=== PATIENT | female | born 1975 | race Caucasian/White ===

== ENCOUNTER 2023-05-17 09:57 | Outpatient (AMB) | payer OTHER, SELFPAY ==
[2023-05-17 10:07] VITALS: BP 110/78; PULSE 93; O2SAT 96; BMI 28.9
--- NOTE | 2023-05-17 10:07 | A.OFFPC_ITS ---
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 Intake Note: Pt is here to est care Is last menstrual period known: Yes Last menstrual period: 04/16/23 Allergies shellfish Allergy (Intermediate, Uncoded 05/17/23 10:27) Angioedema Medication List - Last Reconciled 05/17/23 by THA Pérez albuterol sulfate 90 mcg/actuation 2 inhalations inhalation Q6H PRN albuterol sulfate 90 mcg/actuation (Proventil HFA) 2 puffs inhalation Q6H PRN ashwagandha root extract mg PO L norgest/e.estradiol-e.estrad 0.15 mg-30 mcg (84)/10 mcg (7) (Simpesse) PO loratadine 10 mg PO DAILY montelukast 10 mg PO DAILY [seamoss po; ] vitamin B complex (B Complex-Vitamin B12 tablet) 1 tab PO DAILY Tobacco use date assessed: 05/17/23 Dental Screening Dental Screen Date: 05/17/23 Did you have a dental visit in the last 12 months?: Yes Did you have a dental problem in the last 6 months where you did not have access to dental care?: No Was dental information given to patient?: Patient has dentist HPI HPI Comments History of Present Illness Details Patient is a 47-year-old female here to establish care. She is u p-to-date with her mammogram, states that her next mammogram is due in 1 year. She is due for a well-woman visit. She is due for colonoscopy, will refer to Gastroenterology. She states that she has already establish care with the communications controller in [place] and needs a referral from her primary care provider. She is sending us our medical records from her previous provider. Her chief complaint today is hair loss. Patient states that over the past year she has noticed that her hair is starting to fall out and thin. She is taking multivitamin but does not seem to be helping. Denies itchy scalp, scaling, recent stressful life event, hot flashes, dizziness, or numbness. [facility] Medical History (Updated 01/10/24 @ 15:59 by THA Pérez) Post-COVID syndrome Surgical History (Updated 05/17/23 @ 10:37 by THA Pérez) H/O abdominoplasty H/O tubal ligation Family History Paternal Aunt Breast cancer Father Bladder cancer Paternal Uncle Gastric cancer Paternal Uncle Colon cancer Social History Housing: House Patient Tobacco Use Status: Never used Tobacco e-Cigarette/Vaping Use: Never Used Second Hand Smoke Exposure: No service: No Current occupational status: employed Current occupation: [employer] Current occupational exposures/hazards: No Cognitive needs: No Hearing needs: No Vision needs: No Female Reproductive History Menstrual Date of last menstrual period: 04/16/23 Number of Living Children: 2 Questionnaire PHQ-9 Over the last 2 weeks, how often have you been bothered by any of the following problems? 1. Little interest or pleasure in doing things: not at all 2. Feeling down, depressed, or hopeless: not at all 3. Trouble falling or staying asleep, or sleeping too much: not at all 4. Feeling tired or having little energy: several days 5. Poor appetite or overeating: not at all 6. Feeling bad about yourself - or that you are a failure or have let yourself or your family down: not at all 7. Trouble concentrating on things, such as reading the newspaper or watching television: not at all 8. Moving or speaking so slowly that other people could have noticed. Or the opposite - being so fidgety or restless that you have been moving around a lot more than usual: not at all 9. Thoughts that you would be better off or of hurting yourself in some way: not at all Total score: 1 Depression Screening Interpretation: Negative Depression Screening Done: Yes 66581 - PHQ-9 Billing: Yes Source: Developed by Drs. Epi Rojo, Savita Gonzalez, Martin Pratt and colleagues, with an educational josue from [employer]. Thrive Questionnaire Date Thrive assessed: 05/17/23 I am a: Patient What is your living situation today?: I have a steady place to live Within the past 12 months, did the food you bought not last and you didn't have the money to get more?: Never true Within the past 12 months, did you worry whether your food would run out before you got money to buy more?: Never true Do you have trouble paying for medicines?: No Do you have trouble getting transportation to medical appointments?: No Do you have trouble paying your heating and electricity bill?: No Do you have trouble taking care of your child, family member or friend?: No Do you have trouble with day-to-day activities such as bathing, preparing meals, shopping, managing finances, etc.?: No Are you currently unemployed and looking for a job?: No Are you interested in more education?: No AUDIT C Alcohol Use Questionnaire (AUDIT-C) 1. How often do you have a drink containing alcohol?: Monthly or less 2. How many drinks containing alcohol do you have on a typical day when you are drinking?: 1 or 2 3. How often do you have six or more drinks on one occasion?: Never Total Score: 1 UZMA-7 AMB Questionnaire ZUMA-7 Date UZMA - 7 assessed: 05/17/23 Feeling nervous, anxious, or on edge: 0 = Not at all Not being able to stop or control worryin = Not at all Worrying too much about different things: 0 = Not at all Trouble relaxin = Not at all Being so restless that it is hard to sit still: 0 = Not at all Becoming easily annoyed or irritable: 1 = Several days Feeling afraid as if something awful might happen: 0 = Not at all Total UZMA-7 score (0-4 normal; 5-9 mild; 10-14 moderate; 15-21 severe): 1 Source: Developed by Drs. Epi Rojo, Savita Gonzalez, Martin Pratt and colleagues, with an educational josue from [employer]. UZMA-7 Assessment Billing UZMA-7 Assessment Tool: UZMA-7 Assessment 33445 Review of Systems Const Details: Constitutional : No Weight loss, No Fever, No Chills, No Fatigue, No Malaise ENT/Mouth : No sore throat, No Rhinorrhea Eyes: No Eye Pain, No Swelling, No Redness Cardiovascular : No Chest Pain, No SOB, No Dyspnea on Exertion, No Orthopnea, No Edema, No Palpitations Respiratory : No Cough, No Sputum, No Wheezing Gastrointestinal : No Nausea, No Vomiting, No Diarrhea, No Constipation, No abdominal Pain, No Hematochezia, No Melena Genitourinary : No Dysuria, No Urinary Frequency, No Hematuria, Musculoskeletal : No joint pain, No Myalgias, No Joint Swelling Skin : No Skin Lesions, No rash Neuro : No Weakness, No Numbness, No Dizziness, No Headache Psych : No Anxiety/Panic, No Depression Heme/Lymph: No Bruising, No Bleeding,No Lymphadenopathy Endocrine : No Polyuria, No Polydipsia All other systems reviewed and are negative Physical exam (Primary Care) Vital Signs: Last Vital Signs Pulse 93 05/17/23 10:07 BP 110/78 05/17/23 10:07 Pulse Ox 96 05/17/23 10:07 Oxygen Delivery Method Room Air 05/17/23 10:07 Care Plan Goal for BP management: Patient's blood pressure is on target. BMI result Body Mass Index 28.9 Tobacco/Smoking Status: Tobacco use Status Tobacco use date assessed 05/17/23 05/17/23 10:20 Patient Tobacco Use Status Never used Tobacco 05/17/23 10:20 e-Cigarette/Vaping Use Never Used 05/17/23 10:20 PHQ-9: PHQ-9 Score PHQ-9: Total score 1 05/17/23 10:41 Depression Screening Interpretation: Negative Thrive Assessment: Date of Thrive Assessment Date Thrive assessed 05/17/23 05/17/23 10:23 Const Other: Appearance: Alert.? Oriented X3.? No acute distress.? Head: Normocephalic, atraumatic. Slight hair loss. Eyes: Pupils equal, round and reactive to light.? Neck: Normal inspection.? Neck supple.? CVS: Normal heart rate and rhythm.? Pulses normal.? Respiratory: No respiratory distress.? Breath sounds normal.? Abdomen: Soft and nontender.? Skin: Skin warm and dry.? Normal skin color.? Normal skin turgor.? Neuro: Oriented X 3.? No motor deficit.? No sensory deficit. CN 2-12 intact Results Reviewed Results Reviewed: Will call patient with lab results. Assessment and Plan Assessment & Plan (1) Allergy-induced asthma: Comment: Patient will get referral to pulmonology. Patient has been educated on signs of worsening symptoms when to return to the office or when to present to the emergency room. Code(s): J45.909 - Unspecified asthma, uncomplicated Qualifiers: Asthma severity: unspecified severity Asthma complication type: unspecified Asthma persistence: unspecified Qualified Code(s): J45.909 - Unspecified asthma, uncomplicated (2) Hair loss: Comment: Will draw labs, intervene based on the results. Patient is agreeable to this plan. Code(s): L65.9 - Nonscarring hair loss, unspecified Plan: Take your medications as prescribed. If you were prescribed antibiotics today, it is important that you take your medication to their entirety, do not skip any doses, do not finish them early. Follow-up with your primary care provider this week. Return to the emergency department with new or worsening symptoms. Such as fevers, chills, chest pain, shortness of breath, nausea, vomiting, dizziness, headache, vision changes, lethargy In case of emergency call 911 Plan Follow-up for annual physical in 3-4 months. Orders: Orders Complete Blood Count Auto Diff Today Z13.0 - Encounter for screening for diseases of the blood and blood-forming organs and certain disorders involving the immune mechanism Vitamin D 25-OH (D2 and D3) Today Z13.21 - Encounter for screening for nutritional disorder Vitamin B12 Today Z13.21 - Encounter for screening for nutritional disorder Comprehensive Met. 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
== END 2023-05-17 10:50 | disposition home or self-care (01) ==
PROVIDERS: Visit Provider Nurse Practitioner Primary Care
DX: J45.909 Unspecified asthma, uncomplicated (principal); L65.9 Nonscarring hair loss, unspecified
CPT/HCPCS: 99204

== ENCOUNTER 2023-05-17 10:51 | Outpatient (REF) | payer OTHER, SELFPAY ==
[2023-05-17 13:31] LABS: MANUAL DIFF FLAG NO
[2023-05-17 13:35] LABS: Basophils Percent Auto 0.7 % (0-2); Eosinophils Absolute Auto 0.1 X10*3/uL (0.0-0.4); Eosinophils Percent Auto 2.9 % (0-4); Hematocrit 39.3 % (37.0-47.0); Imm Gran Abs Auto 0.01 X10*3/uL (0.00-0.03); Imm Gran Pct Auto 0.2 % (0.0-0.4); Lymphocytes Absolute Auto 1.6 X10*3/uL (1.2-4.9); Lymphocytes Percent Auto 35.7 % (20-40); Mean Corpuscular HGB Conc 33.1 g/dl (31.0-35.0); Mean Corpuscular Hemoglobin 30.7 pg (27.0-33.0); Mean Corpuscular Volume 92.7 fL (80.0-98.0); Mean Platelet Volume 10.3 fL (9.4-12.3); Monocytes Absolute Auto 0.5 X10*3/uL (0.1-1.2); Monocytes Percent Auto 9.9 % (2-11); Neutrophils Absolute Auto 2.3 x10*3/uL (2.0-8.3); Neutrophils Percent Auto 50.6 % (45-73); Platelet Count 248 X10*3/uL (160-400); Red Blood Count 4.24 X10*6/uL (4.20-5.50); Red Cell Distribution Width 12.5 % (11.0-16.0); White Blood Count 4.6 X10*3/uL (4.8-10.8)
[2023-05-17 13:57] LABS: Appearance Urine Clear; Color Urine Dark Yellow; Glucose Urine UA Negative (Negative); Leukocyte Esterase Urine Small (1+) (Negative); Nitrite Urine Negative (Negative); PH 5.5 (5.0-9.0); Specific Gravity - Urine 1.025 (1.005-1.025); UMIC TRIGGER UACC YES; Urine Blood Negative (Negative); Urine Ketones Negative (Negative); Urine Protein Negative (Neg-Trace)
[2023-05-17 14:04] LABS: Alanine Aminotransferase 43 U/L (0-31); Albumin Level 4.3 g/dL (3.5-5.0); Alkaline Phosphatase 63 U/L (39-117); Anion Gap 13 (12-20); Aspartate Amino Transferase 29 U/L (5-31); Bilirubin Total 0.3 mg/dL (0.0-1.0); Blood Urea Nitrogen 10 mg/dL (9-16); Calcium 9.1 mg/dL (8.4-10.2); Carbon Dioxide 22 mmol/L (22-29); Chloride 109 mmol/L (96-108); Cholesterol 184 mg/dL (<200); Estimated Glomerular Filt Rate > 60; Glucose Random 101 mg/dL (60-115); HDL Cholesterol 43 mg/dL (>40); Iron 71 mcg/dL (30-160); LDL Cholesterol Calculated 118 mg/dL (<100); Percent Iron Saturation 22 % (15-50); Potassium 4.2 mmol/L (3.3-5.1); Sodium 140 mmol/L (135-145); Total Iron Binding Capacity 330 mcg/dL (228-428); Total Protein 7.9 g/dL (6.5-8.0); Triglycerides 117 mg/dL (<150); Unsaturated Iron Binding 259 ug/dL
[2023-05-17 14:13] LABS: Bacteria Urine 1+ (None Seen); Hyaline Casts Urine 0-2 /LPF (0-2); RBC Urine 0-2 /HPF (0-2); UACC Culture Trigger YES
[2023-05-17 14:21] LABS: TSH reflex Free T4 1.83 uIU/mL (0.32-4.0)
[2023-05-17 14:25] LABS: Vitamin B12 418 pg/mL (200-900)
[2023-05-21 16:28] LABS: Vitamin D 25-OH, D2 <4 ng/mL; Vitamin D 25-OH, D3 22 ng/mL; Vitamin D 25-OH, Total 22 ng/mL (30-100)
[2023-05-22 13:43] LABS: Vitamin B6 58.3 ng/mL (2.1-21.7)
== END 2023-05-17 10:52 | disposition home or self-care (01) ==
LOC: HO.HMGCLDS 10:51
PROVIDERS: PCP Nurse Practitioner Primary Care; Visit Provider Nurse Practitioner Primary Care
DX: Z13.21 Encounter for screening for nutritional disorder (principal); Z13.0 Encounter for screening for diseases of the blood and blood-forming organs and certain disorders involving the immune mechanism; E78.5 Hyperlipidemia, unspecified; L65.9 Nonscarring hair loss, unspecified; Z91.89 Other specified personal risk factors, not elsewhere classified; E03.9 Hypothyroidism, unspecified; R82.90 Unspecified abnormal findings in urine
CPT/HCPCS: 36415; 80053; 80061; 81001; 82306; 82607; 83540; 84207; 84443; 85025; 87086

== ENCOUNTER 2023-06-22 11:31 | Outpatient (AMB) | payer OTHER, SELFPAY ==
[2023-06-22 11:33] VITALS: BP 116/72; BMI 28.5
--- NOTE | 2023-06-22 11:33 | A.OFFVIS_ITS ---
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 The patient is complaining of heavy menstrual cycles associated with passage of blood clots Last Pap/HPV was more than 5 years ago Last Mammogram was in 07/28 according to patient at [facility] and was normal No previous screening colonoscopy [facility] Medical History Post-COVID syndrome Surgical History H/O abdominoplasty H/O tubal ligation Family History Paternal Aunt Breast cancer Father Bladder cancer Paternal Uncle Gastric cancer Paternal Uncle Colon cancer Social History Housing: House Patient Tobacco Use Status: Never used Tobacco e-Cigarette/Vaping Use: Never Used Second Hand Smoke Exposure: No service: No Current occupational status: employed Current occupation: [employer] Current occupational exposures/hazards: No Cognitive needs: No Hearing needs: No Vision needs: No Female Reproductive History Menstrual Date of last menstrual period: 06/06/23 Total pregnancies: 4 Full term: 2 Number of Living Children: 2 Ab spontaneous: 2 Review of Systems Const All systems reviewed & are unremarkable except as noted in HPI and below Card Reports as per HPI Resp Reports as per HPI GI Reports as per HPI and Reports no additional complaints Reports as per HPI Physical Exam Vital Signs: Last Vital Signs BP 116/72 06/22/23 11:33 BMI result Body Mass Index 28.5 Const General: cooperative, healthy appearing and comfortable Chest Chest palpation & inspection: normal inspection of the chest and normal palpation of entire chest wall Breast/axilla inspection: normal inspection of the breasts and normal inspection of the axillae Breast/axilla palpation: normal palpation of the breasts, normal palpation of the axillae and no axillary lymphadenopathy Resp Effort & Inspection: normal respiratory effort Auscultation: clear to auscultation bilaterally Percussion: percussion normal Cardio Palpation: normal PMI Rate: regular rate Rhythm: regular rhythm Heart sounds: no murmurs and no rubs Peripheral pulses: Peripheral pulses 2+ throughout GI Inspection: Yes normal to inspection Palpation (GI): Soft to palpation, nontender, no guarding, not rigid and No hepatosplenomegaly present Percussion: Yes normal to percussion Auscultation: normal bowel sounds Rectal Exam - Female: deferred General: Yes bladder normal to palpation External Female Exam: No lesion Speculum Exam - Vagina: normal appearance of the vagina, normal palpation, normal vaginal discharge and not erythematous Speculum Exam - Cervix: normal appearance of the cervix and normal palpation Bimanual exam- vagina & uterus: normal bimanual exam, normal palpation, uterine size normal, bladder normal to palpation, consistency normal and normal palpation Bimanual Exam- Adnexa, other: normal adnexae, no masses and no tenderness Assessment & Plan Assessment & Plan (1) Well woman exam: Code(s): Z01.419 - Encounter for gynecological examination (general) (routine) without abnormal findings Plan: Cotesting done. Mammogram ordered. Counseled the patient about the recommended dietary allowance of 1000 mg of Calcium & 600 IU of vitamin D. The patient is scheduled for screening colonoscopy in 09/28 The patient was instructed to perform monthly self-breast exams and to schedule an annual exam in a year; All questions answered and the patient verbalized understanding. Instructed the patient to schedule annual exam in a year (2) Abnormal uterine bleeding (AUB): Code(s): N93.9 - Abnormal uterine and vaginal bleeding, unspecified Plan: Co testing done, GC and chlamydia taken CBC, TSH, prolactin, HCG, and pelvic ultrasound ordered. Discussed with the patient the different causes of abnormal bleeding including thyroid disorders, uterine and ovarian pathology, endometrial hyperplasia, carcinoma and other potential causes. Discussed with the patient the work up including CBC (to r/o anemia), TSH, prolactin, pelvic Ultrasound, endometrial biopsy to r/o endometrial pathology. All questions answered and the patient verbalized understanding. Instructed the patient to schedule an appointment for an endometrial biopsy in 2 weeks. Orders: Orders MM screening mammo BI Today Z12.31 - Encounter for screening mammogram for malignant neoplasm of breast TSH reflex Free T4 Today N93.9 - Abnormal uterine and vaginal bleeding, unspecified Complete Blood Count no Diff Today N93.9 - Abnormal uterine and vaginal blee ding, unspecified US pelvic and transvaginal Today N93.9 - Abnormal uterine and vaginal bleeding, unspecified Prolactin Today N93.9 - Abnormal uterine and vaginal bleeding, unspecified HCG Quantitative Today N93.9 - Abnormal uterine and vaginal bleeding, unspecified Coding Level of Care Code New Pt Level 3 (51865) Diagnoses Well woman exam Z01.419 Abnormal uterine bleeding (AUB) N93.9
== END 2023-06-22 12:06 | disposition home or self-care (01) ==
PROVIDERS: PCP Nurse Practitioner Primary Care; Visit Provider Obstetrics & Gynecology
DX: Z01.419 Encounter for gynecological examination (general) (routine) without abnormal findings (principal); N93.9 Abnormal uterine and vaginal bleeding, unspecified
CPT/HCPCS: 99386

== ENCOUNTER 2023-06-22 11:31 | Outpatient (REF) | payer OTHER, SELFPAY ==
[2023-06-22 16:13] LABS: CT PCR NOT DETECTED (Not Detect.); NG PCR NOT DETECTED (Not Detect.)
[2023-06-27 04:24] LABS: HPV mRNA E6/E7 rflx Not Detected (Not Detected)
== END 2023-06-22 11:32 | disposition home or self-care (01) ==
LOC: HO.LNP 11:31
PROVIDERS: PCP Nurse Practitioner Primary Care; Visit Provider Obstetrics & Gynecology
DX: Z01.419 Encounter for gynecological examination (general) (routine) without abnormal findings (principal); Z11.51 Encounter for screening for human papillomavirus (HPV); Z20.2 Contact with and (suspected) exposure to infections with a predominantly sexual mode of transmission; N93.9 Abnormal uterine and vaginal bleeding, unspecified
CPT/HCPCS: 0353U; 87624; 88142

== ENCOUNTER 2023-07-11 12:07 | Outpatient (REF) | payer OTHER, SELFPAY ==
[2023-07-11 13:33] LABS: Hemoglobin 14.2 g/dl (12.0-16.0); Mean Corpuscular Hemoglobin 30.4 pg (27.0-33.0); Mean Corpuscular Volume 92.1 fL (80.0-98.0); Platelet Count 276 X10*3/uL (160-400); Red Blood Count 4.67 X10*6/uL (4.20-5.50); Red Cell Distribution Width 12.7 % (11.0-16.0); White Blood Count 7.4 X10*3/uL (4.8-10.8)
[2023-07-11 15:38] LABS: HCG Quantitative < 2 mIU/mL; TSH reflex Free T4 0.95 uIU/mL (0.32-4.0)
[2023-07-12 15:43] LABS: Prolactin 11.1 ng/mL
== END 2023-07-11 12:08 | disposition home or self-care (01) ==
LOC: HO.HMGCLDS 12:07
PROVIDERS: PCP Nurse Practitioner Primary Care; Visit Provider Obstetrics & Gynecology
DX: N93.9 Abnormal uterine and vaginal bleeding, unspecified (principal)
CPT/HCPCS: 36415; 84146; 84443; 84702; 85027

== ENCOUNTER 2023-08-10 10:45 | Outpatient (REF) | payer OTHER, SELFPAY ==
--- NOTE | ~2023-08-10 | US_ITS ---
EXAMINATION: US PELVIS CLINICAL INFORMATION: Normal uterine vaginal bleeding, last menstrual period late June 2023. COMPARISON: None available. TECHNIQUE: Ultrasound of the pelvis is performed using both transabdominal and transvaginal transducers along with Doppler. Transvaginal imaging is performed due to inadequate visualization transabdominally. FINDINGS: The uterus measures 9.2 x 4.6 x 5.0 cm and is anteverted. A 0.5 x 0.3 x 0.5 cm fibroid. No significant free fluid. Right ovary measures 2.6 x 1.7 x 1.8 cm, volume 4.1 mL. Left ovary measures 2.2 x 1.3 x 1.9 cm, volume 3.0 mL. Evaluation of the endometrium was somewhat limited due to dynamic, changing position of the uterus throughout the transvaginal exam per mold cooler. Endometrial thickness up to 23 mm with possible 1.2 x 0.6 x 1.1 cm endometrial polyp observed on initial imaging, but in later portion of the exam, endometrial thickness appeared to measure 12 mm and previously questioned possible polyp was difficult to appreciate. US/US pelvic and transvaginal IMPRESSION: 1. Evaluation of the endometrium was somewhat limited due to dynamic, changing position of the uterus throughout the transvaginal exam per mold cooler. Endometrial thickness up to 23 mm with possible 1.2 x 0.6 x 1.1 cm endometrial polyp observed on initial imaging, but in later portion of the exam, endometrial thickness appeared to measure 12 mm and previously questioned possible polyp was difficult to appreciate. 2. Gynecologic consultation recommended to determine further management including possible biopsy.
== END 2023-08-10 10:46 | disposition home or self-care (01) ==
LOC: HO.US 10:45
PROVIDERS: PCP Nurse Practitioner Primary Care; Visit Provider Obstetrics & Gynecology
DX: N93.9 Abnormal uterine and vaginal bleeding, unspecified (principal)
CPT/HCPCS: 76830; 76856

== ENCOUNTER 2023-08-29 10:55 | Outpatient (AMB) | payer OTHER, SELFPAY ==
--- NOTE | 2023-08-29 11:00 | A.OFFVIS_ITS ---
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 A 0.5 x 0.3 x 0.5 cm fibroid. No significant free fluid. Right ovary measures 2.6 x 1.7 x 1.8 cm, volume 4.1 mL. Left ovary measures 2.2 x 1.3 x 1.9 cm, volume 3.0 mL. Evaluation of the endometrium was somewhat limited due to dynamic, changing position of the uterus throughout the transvaginal exam per oncology rep. Endometrial thickness up to 23 mm with possible 1.2 x 0.6 x 1.1 cm endometrial polyp observed on initial imaging, but in later portion of the exam, endometrial thickness appeared to measure 12 mm and previously questioned possible polyp was difficult to appreciate. [facility] Medical History Post-COVID syndrome Surgical History H/O abdominoplasty H/O tubal ligation Family History Paternal Aunt Breast cancer Father Bladder cancer Paternal Uncle Gastric cancer Paternal Uncle Colon cancer Social History Housing: House Patient Tobacco Use Status: Never used Tobacco e-Cigarette/Vaping Use: Never Used Second Hand Smoke Exposure: No service: No Current occupational status: employed Current occupation: [employer] Current occupational exposures/hazards: No Cognitive needs: No Hearing needs: No Vision needs: No Female Reproductive History Menstrual Date of last menstrual period: 03/05/20 Total pregnancies: 2 Full term: 2 Review of Systems Card Reports as per HPI and Reports no additional complaints Resp Reports as per HPI and Reports no additional complaints GI Reports as per HPI and Reports no additional complaints Reports as per HPI Physical Exam Const General: cooperative, healthy appearing and comfortable Resp Effort & Inspection: normal respiratory effort Auscultation: clear to auscultation bilaterally Percussion: percussion normal Cardio Palpation: normal PMI Rate: regular rate Rhythm: regular rhythm Heart sounds: no murmurs and no rubs Peripheral pulses: Peripheral pulses 2+ throughout GI Inspection: Yes normal to inspection Palpation (GI): Soft to palpation, nontender, no guarding, not rigid and No hepatosplenomegaly present Percussion: Yes normal to percussion Auscultation: normal bowel sounds Rectal Exam - Female: deferred Assessment & Plan Assessment & Plan (1) Abnormal uterine bleeding (AUB): Comment: With possible endometrial polyp by ultrasound Code(s): N93.9 - Abnormal uterine and vaginal bleeding, unspecified Category: Medical Plan: Discussed with the patient the finding on ultrasound with questionable possible endometrial polyp Recommended to the patient that the next step is an endometrial sampling via hysteroscopy D&C possible polypectomy versus endometrial biopsy to r/o endometrial pathology including hyperplasia or cancer. All the pros and cons risks and benefits of each approach were discussed with the patient, endometrial biopsy being less invasive, office procedure with less sensitivity and inability diagnose a polyp and removal versus hysteroscopy done under anesthesia more invasive more sensitive to endometrial cancer and possibility of diagnosing and endometrial polyp with the possibility of polypectomy. All questions were answered pt verbalized understanding and decided to proceed with hysteroscopy D&C possible polypectomy/myomectomy. Will proceed with hysteroscopy D&C possible polypectomy/myomectomy. Discussed with the patient the procedure , all benefits and risks including but not limited to inability to complete the procedure , insufficient endometrial t issue for a complete evaluation of the endometrial cavity , bleeding, infection, possible need for blood transfusion with all its risk ( HIV,syphilis, Hepatitis, anaphylaxis shock, others..), injury to bladder, rectum, possible need for laparoscopy/laparotomy or hysterectomy. The patient verbalized understanding and signed the consent. Instructions given the patient to schedule a 2 week postoperative appointment Coding Level of Care Code Est Pt Level 3 (36409) Diagnoses Abnormal uterine bleeding (AUB) N93.9
== END 2023-08-29 12:23 | disposition home or self-care (01) ==
LOC: HO.HWS 10:55
PROVIDERS: PCP Nurse Practitioner Primary Care; Visit Provider Obstetrics & Gynecology
DX: N93.9 Abnormal uterine and vaginal bleeding, unspecified (principal)
CPT/HCPCS: 99213

== ENCOUNTER → 2023-08-29 10:55 | Outpatient (BNVA) | payer OTHER, SELFPAY | PROVIDERS: PCP Nurse Practitioner Primary Care; Visit Provider Obstetrics & Gynecology ==

== ENCOUNTER 2023-09-18 10:11 | Outpatient (AMB) | payer OTHER, SELFPAY ==
--- NOTE | 2023-09-18 10:22 | MHC.PC.OV ---
Vital Signs 09/18/23 10:23 Height 4 ft 11 in Weight 144 lb 4 oz BMI 29.1 BP 118/84 Blood Pressure Location Rt brachial Position Sitting Pulse 79 Pulse Source Pulse Oximeter Pulse Oximetry (%) 95 Oxygen Delivery Method Room Air Intake Visit Reasons: Annual PE Is last menstrual period known: Yes Last menstrual period: 08/23/23 Allergies shellfish Allergy (Intermediate, Uncoded 09/18/23 10:31) Angioedema Medication List - Last Reconciled 09/18/23 by THA Pérez albuterol sulfate 90 mcg/actuation 2 inhalations inhalation Q6H PRN albuterol sulfate 90 mcg/actuation (Proventil HFA) 2 puffs inhalation Q6H PRN ashwagandha root extract mg PO loratadine 10 mg PO DAILY montelukast 10 mg PO DAILY [seamoss po; ] vitamin B complex (B Complex-Vitamin B12 tablet) 1 tab PO DAILY Tobacco use date assessed: 09/18/23 Dental Screening Dental Screen Date: 09/18/23 Did you have a dental visit in the last 12 months?: Yes Did you have a dental problem in the last 6 months where you did not have access to dental care?: No Was dental information given to patient?: Patient has dentist HPI HPI Comments History of Present Illness Details Patient is a 48-year-old female here for physical exam. Past medical history of: Asthma-currently be seen by [place] reconciliation clerk. Controlled. Uterine bleeding-patient currently being seen by [place] asphalt roller operator. Patient is up-to-date with Pap smear. Up-to-date with mammogram. Intermittent Urticaria- Patient needs referral to certified indoor environmentalist. Patient is up-to-date with colonoscopy. She is up-to-date with Tdap. [facility] Medical History (Updated 09/18/23 @ 10:54 by THA Pérez) Hives Post-COVID syndrome Surgical History H/O abdominoplasty H/O tubal ligation Family History Paternal Aunt Breast cancer Father Bladder cancer Paternal Uncle Gastric cancer Paternal Uncle Colon cancer Social History Housing: House Patient Tobacco Use Status: Never used Tobacco e-Cigarette/Vaping Use: Never Used Second Hand Smoke Exposure: No service: No Current occupational status: employed Current occupation: [employer] Current occupational exposures/hazards: No Cognitive needs: No Hearing needs: No Vision needs: No Female Reproductive History Menstrual Date of last menstrual period: 08/23/23 Questionnaire Thrive Questionnaire Date Thrive assessed: 05/17/23 AUDIT C Alcohol Use Questionnaire (AUDIT-C) 1. How often do you have a drink containing alcohol?: Monthly or less 2. How many drinks containing alcohol do you have on a typical day when you are drinking?: 1 or 2 3. How often do you have six or more drinks on one occasion?: Never Total Score: 1 Score Reviewed/Action Taken: Yes UZMA-7 AMB Questionnaire UZMA-7 Date UZMA - 7 assessed: 05/17/23 Source: Developed by Drs. Epi Rojo, Savita Gonzalez, Martin Pratt and colleagues, with an educational josue from [employer]. Review of Systems Const All systems reviewed & are unremarkable except as noted in HPI and below Physical exam (Primary Care) Vital Signs: Last Vital Signs BP 118/84 09/18/23 10:23 Care Plan Goal for BP management: BP controlled BMI result Body Mass Index 29.1 Tobacco/Smoking Status: Tobacco use Status Tobacco use date assessed 05/17/23 06/22/23 12:24 Patient Tobacco Use Status Never used Tobacco 06/22/23 12:24 e-Cigarette/Vaping Use Never Used 06/22/23 12:24 Thrive Assessment: Date of Thrive Assessment Date Thrive assessed 05/17/23 06/22/23 12:24 Const Other: Appearance: Alert.? Oriented X3.? No acute distress.? Head: Normocephalic, atraumatic, no step-offs or deformities Eyes: Pupils equal, round and reactive to light.? ENT: Pharynx normal.?TM intact and pearly white. Neck: Normal inspection.? Neck supple.? CVS: Normal heart rate and rhythm.? Pulses normal.? Respiratory: No respiratory distress.? Breath sounds normal.? Abdomen: Soft and nontender.? Skin: Skin warm and dry.? Normal skin color.? Normal skin turgor.? Extremities: No lower extremity edema.? No calf ttp. 5/5 strength to bilateral upper and lower extremities Back: No midline tenderness, no C-spine tenderness, full range of motion, no CVA tenderness bilaterally Neuro: Oriented X 3.? No motor deficit.? No sensory deficit. CN 2-12 intact Assessment and Plan Assessment & Plan (1) Encounter for physical examination: Comment: Will order fasting labs today. Code(s): Z00.00 - Encounter for general adult medical examination without abnormal findings (2) Reactive airway disease: Comment: Patient sees reconciliation clerk through [facility] in and field Code(s): J45.909 - Unspecified asthma, uncomplicated Qualifiers: Asthma complication type: with acute exacerbation Asthma persistence: intermittent Asthma severity: mild Qualified Code(s): J45.21 - Mild intermittent asthma with (acute) exacerbation (3) Abnormal uterine bleeding (AUB): Comment: With possible endometrial polyp by ultrasound. Patient is being seen by a OBGYN. Patient has upcoming procedure in 2 months Code(s): N93.9 - Abnormal uterine and vaginal bleeding, unspecified (4) Hives: Comment: History intermittent hives. No airway involvement. Needs referral to certified indoor environmentalist Code(s): L50.9 - Urticaria, unspecified Plan: Take your medications as prescribed. If you were prescribed antibiotics today, it is important that you take your medication to their entirety, do not skip any doses, do not finish them early. Present to the emergency department with new or worsening symptoms. Such as fevers, chills, chest pain, shortness of breath, nausea, vomiting, dizziness, headache, vision changes, lethargy In case of emergency call 911 Plan Follow-up in 6 months Coding Level of Care Code Est Pt Prev Care 40-64y(23686) Diagnoses Encounter for physical examination Z00.00 Mild intermittent reactive airway disease with acute exacerbation J45.21 Asthma complication type: with acute exacerbation Asthma persistence: intermittent Asthma severity: mild Abnormal uterine bleeding (AUB) N93.9 Hives L50.9 Time Spent (min) 28
[2023-09-18 10:23] VITALS: BP 118/84; PULSE 79; O2SAT 95; BMI 29.1
== END 2023-09-18 11:56 | disposition home or self-care (01) ==
LOC: HO.HMGC 10:11
PROVIDERS: PCP Nurse Practitioner Primary Care; Visit Provider Nurse Practitioner Primary Care
DX: Z00.00 Encounter for general adult medical examination without abnormal findings (principal); J45.21 Mild intermittent asthma with (acute) exacerbation; N93.9 Abnormal uterine and vaginal bleeding, unspecified; L50.9 Urticaria, unspecified
CPT/HCPCS: 99396

== ENCOUNTER 2023-09-28 10:13 | Outpatient (REF) | payer OTHER, SELFPAY ==
[2023-09-28 13:16] LABS: MANUAL DIFF FLAG NO
[2023-09-28 13:32] LABS: Basophils Percent Auto 0.5 % (0-2); Eosinophils Absolute Auto 0.2 X10*3/uL (0.0-0.4); Eosinophils Percent Auto 2.8 % (0-4); Hematocrit 38.1 % (37.0-47.0); Hemoglobin 12.5 g/dl (12.0-16.0); Imm Gran Abs Auto 0.03 X10*3/uL (0.00-0.03); Imm Gran Pct Auto 0.5 % (0.0-0.4); Lymphocytes Percent Auto 35.3 % (20-40); Mean Corpuscular HGB Conc 32.8 g/dl (31.0-35.0); Mean Corpuscular Hemoglobin 30.8 pg (27.0-33.0); Mean Corpuscular Volume 93.8 fL (80.0-98.0); Mean Platelet Volume 10.1 fL (9.4-12.3); Monocytes Absolute Auto 0.5 X10*3/uL (0.1-1.2); Monocytes Percent Auto 8.4 % (2-11); Neutrophils Percent Auto 52.5 % (45-73); Platelet Count 264 X10*3/uL (160-400); Red Blood Count 4.06 X10*6/uL (4.20-5.50); Red Cell Distribution Width 13.2 % (11.0-16.0); White Blood Count 5.7 X10*3/uL (4.8-10.8)
[2023-09-28 13:37] LABS: Alanine Aminotransferase 23 U/L (0-31); Albumin Level 4.1 g/dL (3.5-5.0); Alkaline Phosphatase 70 U/L (39-117); Anion Gap 14 (12-20); Aspartate Amino Transferase 18 U/L (5-31); Bilirubin Total 0.4 mg/dL (0.0-1.0); Blood Urea Nitrogen 13 mg/dL (9-16); Calcium 8.9 mg/dL (8.4-10.2); Carbon Dioxide 20 mmol/L (22-29); Chloride 108 mmol/L (96-108); Cholesterol 223 mg/dL (<200); Estimated Glomerular Filt Rate > 60; Glucose Random 105 mg/dL (60-115); HDL Cholesterol 51 mg/dL (>40); LDL Cholesterol Calculated 137 mg/dL (<100); Sodium 138 mmol/L (135-145); Total Protein 7.5 g/dL (6.5-8.0); Triglycerides 176 mg/dL (<150)
[2023-09-28 14:06] LABS: Vitamin B12 386 pg/mL (200-900)
[2023-10-02 14:18] LABS: Vitamin D 25-OH, D2 <4 ng/mL; Vitamin D 25-OH, D3 31 ng/mL; Vitamin D 25-OH, Total 31 ng/mL (30-100)
[2023-10-05 06:13] LABS: Vitamin B6 19.6 ng/mL (2.1-21.7)
== END 2023-09-28 10:14 | disposition home or self-care (01) ==
LOC: HO.HMGCLDS 10:13
PROVIDERS: PCP Nurse Practitioner Primary Care; Visit Provider Nurse Practitioner Primary Care
DX: Z91.89 Other specified personal risk factors, not elsewhere classified (principal); Z13.0 Encounter for screening for diseases of the blood and blood-forming organs and certain disorders involving the immune mechanism; Z13.21 Encounter for screening for nutritional disorder; Z13.220 Encounter for screening for lipoid disorders
CPT/HCPCS: 36415; 80053; 80061; 82306; 82607; 84207; 85025

== ENCOUNTER 2023-10-26 12:58 | Outpatient (AMB) | payer OTHER, SELFPAY ==
--- NOTE | 2023-10-26 13:12 | A.OFFVIS_ITS ---
Vital Signs 10/26/23 13:13 Height 4 ft 11 in Weight 146 lb BMI 29.5 BP 108/70 Blood Pressure Location Lt brachial Position Sitting Intake Visit Reasons: pre op Coordinator Of Health Services: Coordinator Of Health Services Present Allergies shellfish Allergy (Intermediate, Uncoded 10/26/23 13:14) Angioedema Is last menstrual period known: Yes Last menstrual period: 03/05/20 Post menopausal: No Patient : No Do you need a note to return to daycare/school/sports/work: Yes (for surgery on monday) HPI Comments Details: Presenting to discuss hysteroscopy D&C possible polypectomy for AUB with possible endometrial polyp on pelvic ultrasound [facility] Medical History Hives Post-COVID syndrome Surgical History H/O abdominoplasty H/O tubal ligation Family History Paternal Aunt Breast cancer Father Bladder cancer Paternal Uncle Gastric cancer Paternal Uncle Colon cancer Social History Housing: House Patient Tobacco Use Status: Never used Tobacco e-Cigarette/Vaping Use: Never Used Second Hand Smoke Exposure: No service: No Current occupational status: employed Current occupation: [employer] Current occupational exposures/hazards: No Cognitive needs: No Hearing needs: No Vision needs: No Female Reproductive History Menstrual Date of last menstrual period: 03/05/20 Total pregnancies: 2 Full term: 2 Review of Systems Card Reports as per HPI and Reports no additional complaints Resp Reports as per HPI and Reports no additional complaints GI Reports as per HPI and Reports no additional complaints Reports as per HPI Physical Exam Vital Signs: Last Vital Signs BP 108/70 10/26/23 13:13 BMI result Body Mass Index 29.5 Const General: cooperative, healthy appearing and comfortable Resp Effort & Inspection: normal respiratory effort Auscultation: clear to auscultation bilaterally Percussion: percussion normal Cardio Palpation: normal PMI Rate: regular rate Rhythm: regular rhythm Heart sounds: no murmurs and no rubs Peripheral pulses: Peripheral pulses 2+ throughout GI Inspection: Yes normal to inspection Palpation (GI): Soft to palpation, nontender, no guarding, not rigid and No hepatosplenomegaly present Percussion: Yes normal to percussion Auscultation: normal bowel sounds Rectal Exam - Female: deferred Assessment & Plan Assessment & Plan (1) Abnormal uterine bleeding (AUB): Comment: With possible endometrial polyp by ultrasound. Code(s): N93.9 - Abnormal uterine and vaginal bleeding, unspecified Category: Medical Plan: Recommended hysteroscopy D&C possible polypectomy/myomectomy. Discussed with the patient the procedure , all benefits and risks including but not limited to inability to complete the procedure , insufficient endometrial tissue for a complete evaluation of the endometrial cavity , bleeding, infection, possible need for blood transfusion with all its risk ( HIV,syphilis, Hepatitis, anaphylaxis shock, others..), injury to bladder, rectum, possible need for laparoscopy/laparotomy or hysterectomy. The patient verbalized understanding and signed the consent. Instructions given the patient to stay NPO after midnight the day prior to the procedure and to take only the specific medication (s) discussed the morning of the surgical procedure and to schedule a 2 week postoperative appointment Coding Level of Care Code Est Pt Level 3 (62034) Diagnoses Abnormal uterine bleeding (AUB) N93.9
[2023-10-26 13:13] VITALS: BP 108/70; BMI 29.5
== END 2023-10-26 13:59 | disposition home or self-care (01) ==
PROVIDERS: PCP Nurse Practitioner Primary Care; Visit Provider Obstetrics & Gynecology
DX: N93.9 Abnormal uterine and vaginal bleeding, unspecified (principal)
CPT/HCPCS: 99213

== ENCOUNTER → 2023-10-26 12:58 | Outpatient (BNVA) | payer OTHER, SELFPAY | PROVIDERS: PCP Nurse Practitioner Primary Care; Visit Provider Obstetrics & Gynecology ==

== ENCOUNTER 2023-10-27 11:26 | Day surgery (SDC) | payer OTHER, SELFPAY ==
[2023-10-25 07:30] VITALS: BMI 29.1
--- NOTE | 2023-10-25 09:49 | P.CONAN_ITS ---
Documented by User: Milena Burkett NP 10/25/23 09:50 HPI - Anesthesia Eval Consult details Narrative: 48yo F for D&C Hysteroscopy,possible myomectomy,possible polypectomy PMFSH Active Problems Active Problems: All Active Problems Hives (Acute) Encounter for physical examination (Acute) Reactive airway disease (Acute) Abnormal uterine bleeding (AUB) (Acute) Well woman exam (Acute) Hair loss (Acute) Allergy-induced asthma (Acute) Past Medical History Medical History Hives Post-COVID syndrome Family History Family History Paternal Aunt Breast cancer Father Bladder cancer Paternal Uncle Gastric cancer Paternal Uncle Colon cancer Surgical History Surgical History H/O abdominoplasty H/O tubal ligation Social History Social History Housing: House Patient Tobacco Use Status: Never used Tobacco e-Cigarette/Vaping Use: Never Used Second Hand Smoke Exposure: No Use of substances other than those prescribed or required for medical reasons: No Are you DNR?: No Advance Directives: No Advance Directives Information Provided: Yes service: No Current occupational status: employed Current occupation: [employer] Current occupational exposures/hazards: No Cognitive needs: No Hearing needs: No Vision needs: No Meds Allergies Allergy/AdvReac Type Severity Reaction Status Date / Time shellfish Allergy Intermediate Angioedema Uncoded 10/27/23 11:39 Home Medications ?Medication ?Instructions ?Recorded ?Confirmed ?Last Taken ?Type albuterol sulfate 90 mcg/actuation 2 puff inhalation Q6H PRN Allergy 05/17/23 09/18/23 Unknown History aerosol inhaler (Proventil HFA) Symptoms ashwagandha root extract 300 mg mg PO 05/17/23 09/18/23 Unknown History capsule loratadine 10 mg tablet 10 mg PO DAILY 05/17/23 09/18/23 Unknown History montelukast 10 mg tablet 10 mg PO DAILY 05/17/23 09/18/23 Unknown History seamoss See Rx Instructions .Route .COMPLEX 05/17/23 09/18/23 Unknown History Exam Height,Weight and Vital Signs: Height 4 ft 11 in Weight 65.317 kg Assessment and Plan Assessment Anesthesia Assessment: Chart Reviewed Documented by User: Steffi Mora MD 10/27/23 12:51 [facility] Past Medical History Medical History Hives Post-COVID syndrome Family History Family History Paternal Aunt Breast cancer Father Bladder cancer Paternal Uncle Gastric cancer Paternal Uncle Colon cancer Family history of problems with anesthesia: No Surgical History Surgical History H/O abdominoplasty H/O tubal ligation History of Problems with Anesthesia: No Social History Social History Housing: House Patient Tobacco Use Status: Never used Tobacco e-Cigarette/Vaping Use: Never Used Second Hand Smoke Exposure: No Use of substances other than those prescribed or required for medical reasons: No Are you DNR?: No Advance Directives: No Advance Directives Information Provided: Yes service: No Current occupational status: employed Current occupation: [employer] Current occupational exposures/hazards: No Cognitive needs: No Hearing needs: No Vision needs: No Meds Allergies Allergy/AdvReac Type Severity Reaction Status Date / Time shellfish Allergy Intermediate Angioedema Uncoded 10/27/23 11:39 Home Medications ?Medication ?Instructions ?Recorded ?Confirmed ?Last Taken ?Type albuterol sulfate 90 mcg/actuation 2 puff inhalation Q6H PRN Allergy 05/17/23 09/18/23 Unknown History aerosol inhaler (Proventil HFA) Symptoms ashwagandha root extract 300 mg mg PO 05/17/23 09/18/23 Unknown History capsule loratadine 10 mg tablet 10 mg PO DAILY 05/17/23 09/18/23 Unknown History montelukast 10 mg tablet 10 mg PO DAILY 05/17/23 09/18/23 Unknown History seamoss See Rx Instructions .Route .COMPLEX 05/17/23 09/18/23 Unknown History Exam Airway Mallampati Class: II TM Dist: >3cm Neck ROM: Full Heart: rrrcta Assessment and Plan Assessment Anesthesia Assessment: Anesthesia Plan Discussed Final Anesthetic Review Family History of Problems with Anesthesia: No History of Problems with Anesthesia: No NPO: Yes ASA Class: II Final Preanesthetic Review: No Changes in Pt Med Stat, Meds/Allgs Chart Reviewed, Consent Obtained/Reviewed and Anes Risks/Benef Reviewed Patient Risk: Low Procedure Risk: Low Anesthetic Plan Anesthetic Plan: GA Disposition: Standard PACU
[2023-10-27 12:01] LABS: UPreg QC Valid YES; Urine Pregnancy NEGATIVE (NEGATIVE)
--- NOTE | 2023-10-27 12:04 | MHC.SHP ---
Pre-Procedural Eval Section A - 24 Hr Update-Section A only Date of Service: 10/27/23 The patient is an INPATIENT: No Changes since office visit: No Cold of Flu in the past 2 weeks, No New Medical Problems, No Changes in Medication and No Patient answered all questions The patient has been examined within 24 hours of the surgical procedure. The History & Physical has been completed within 30 days and I have reviewed it.: Yes Section B - Complete if H&P > 30 days Chief Complaint: Abnormal uterine and vaginal bleeding, unspecified Allergies: Allergies Allergy/AdvReac Type Severity Reaction Status Date / Time shellfish Allergy Intermediate Angioedema Uncoded 10/27/23 11:39 Plan Diagnosis/Plan: Unchanged I have reviewed the history and physical and performed a pertinent physical examination on my patient. No changes have occurred unless specified. Time Spent With Patient Time: Total time managing care of this patient today ____ minutes.
[2023-10-27 12:13] VITALS: BMI 28.3
[2023-10-27 12:50] VITALS: BP 133/88; PULSE 89; RESP 15; TEMP 36.9; O2SAT 97
[2023-10-27] MEDS: Lactated Ringers 1,000 ML 100 ML IVCONT (12:53)
--- NOTE | 2023-10-27 13:20 | P.OP_ITS ---
Operative Note Operative Note Date of Service: 10/27/23 Narrative: Preop Diagnosis: Abnormal uterine bleeding, Endometrial polyp by US Operation: Diagnostic Hysteroscopy, Dilataion & Curettage and polypectomy Post Op Diagnosis: Endometrial Polyp QBL: Minimal Anesthesia: GLMA Surgeon: Evangelista Rizvi MD Plastic Printer: None Complication: None Pathology: Endometrial Scrapings, Endometrial polyp Procedure: The patient was put in the dorsal lithotomy position, scrubbed, and draped in the usual manner. A sterile speculum was inserted in the patient's vagina. The anterior lip of the cervix was grasped with a single tooth tenaculum. The cervix was dilated up to 5 mm, then the scope was inserted in the patient's uterus. Inspection revealed endometrial polyp. The Myosure Reach device was used; it was introduced through the operative channel and polypectomy done with no complications. The scope was then taken out from the uterine cavity, sharp curettings was carried on with minimal to moderate amount of tissues retrieved. At the end of the procedure, all instruments were taken out of the patient uterine and vaginal cavity. The single tooth tenaculum was removed and homeostasis was assured using pressure,. The patient tolerated the procedure well and was transferred to the PACU in a stable condition.
--- NOTE | 2023-10-27 13:20 | PM.OP ---
Brief Operative Note Date of Service: 10/27/23 Pre-op diagnosis: Abnormal uterine bleeding, endometrial polyp Post-op diagnosis: same (Endometrial polyp) Procedure: Hysteroscopy D&C, Polypectomy Surgeon: Evangelista Rizvi MD Anesthesia: GLMA Was an Patient Case Manager used for this Procedure?: No Estimated blood loss (mL): 0 Pathology: other (Endometrial Scrapping. Polyp) Condition: stable Disposition: PACU
[2023-10-27 13:25] VITALS: BP 133/90; PULSE 75; RESP 12; TEMP 36.1; O2SAT 97
[2023-10-27 13:30] VITALS: BP 128/84; PULSE 78; RESP 12; O2SAT 99
[2023-10-27 13:35] VITALS: BP 131/83; PULSE 93; RESP 12; O2SAT 99
[2023-10-27 13:39] VITALS: BP 130/83; PULSE 89; RESP 14; O2SAT 99
[2023-10-27 13:50] VITALS: BP 121/79; PULSE 81; RESP 18; TEMP 36.1; O2SAT 100
== END 2023-10-27 14:20 | disposition home or self-care (01) ==
PROVIDERS: PCP Nurse Practitioner Primary Care; Visit Provider Obstetrics & Gynecology
PROC: 0UDB8ZZ Extraction of Endometrium, Via Natural or Artificial Opening Endoscopic (ICD-10-PCS; CPT 58558; principal; 2023-10-27 13:00)
DX: N93.9 Abnormal uterine and vaginal bleeding, unspecified (principal); N84.0 Polyp of corpus uteri; U09.9 Post COVID-19 condition, unspecified; Z98.890 Other specified postprocedural states; Z98.51 Tubal ligation status
CPT/HCPCS: 58558; 81025; 88305; J1100; J2250; J2405; J2704; J3010

== ENCOUNTER → 2023-10-27 11:26 | Outpatient (BNV) | payer OTHER, SELFPAY | PROVIDERS: PCP Nurse Practitioner Primary Care; Visit Provider Obstetrics & Gynecology | DX: N84.0 Polyp of corpus uteri (principal); N93.9 Abnormal uterine and vaginal bleeding, unspecified | CPT/HCPCS: 58558 ==

== ENCOUNTER 2023-11-08 15:43 | Outpatient (AMB) | payer OTHER, SELFPAY ==
--- NOTE | 2023-11-08 15:46 | A.OFFVIS_ITS ---
Vital Signs 11/08/23 15:48 Height 4 ft 11 in Weight 146 lb BMI 29.5 Intake Visit Reasons: post op Allergies shellfish Allergy (Intermediate, Uncoded 10/27/23 11:39) Angioedema HPI Comments Details: The patient is presenting post hysteroscopy D&C no complaints minimal vaginal bleeding no feverishness chills or abdominal pain. The pathology showed the following: A. Endometrial polyp, resection: Fragments of benign endometrial polyp; no atypia or carcinoma. B. Endometrium, curettage: Benign inactive endometrium and fragments of benign endometrial polyp; no atypia or carcinoma. The following workup was done: H&H= 12.5/38.1 TSH, prolactin, hCG, GC and chlamydia were negative. Co testing was done was negative. Mammogram ordered but not done in. Pelvic ultrasound showed the following: The uterus measures 9.2 x 4.6 x 5.0 cm and is anteverted. A 0.5 x 0.3 x 0.5 cm fibroid. No significant free fluid. Right ovary measures 2.6 x 1.7 x 1.8 cm, volume 4.1 mL. Left ovary measures 2.2 x 1.3 x 1.9 cm, volume 3.0 mL. Evaluation of the endometrium was somewhat limited due to dynamic, changing position of the uterus throughout the transvaginal exam per textile technical officer. Endometrial thickness up to 23 mm with possible 1.2 x 0.6 x 1.1 cm endometrial polyp observed on initial imaging, but in later portion of the exam, endometrial thickness appeared to measure 12 mm and previously questioned possible polyp was difficult to appreciate [facility] Medical History Hives Post-COVID syndrome Surgical History H/O abdominoplasty H/O tubal ligation Family History Paternal Aunt Breast cancer Father Bladder cancer Paternal Uncle Gastric cancer Paternal Uncle Colon cancer Social History Housing: House Patient Tobacco Use Status: Never used Tobacco e-Cigarette/Vaping Use: Never Used Second Hand Smoke Exposure: No service: No Current occupational status: employed Current occupation: [employer] Current occupational exposures/hazards: No Cognitive needs: No Hearing needs: No Vision needs: No Review of Systems Const All systems reviewed & are unremarkable except as noted in HPI and below Reports as per HPI and Reports no additional complaints GI Reports no additional complaints Reports no additional complaints Physical Exam Vital Signs: BMI result Body Mass Index 29.5 Assessment & Plan Assessment & Plan (1) Abnormal uterine bleeding (AUB): Comment: With endometrial polyp by ultrasound status post hysteroscopic polypectomy, benign pathology Code(s): N93.9 - Abnormal uterine and vaginal bleeding, unspecified Category: Medical Plan: Discussed with the patient the results of the work up done and options of treatment including Lysteda, BCP's, Mirena IUD, endometrial ablation and hysterectomy. All pros, cons, risks and benefits if each option was discussed with the patient and the patient decided to think about it and get back to us. All questions answered the patient verbalized understanding. Coding Level of Care Code Est Pt Level 3 (50089) Diagnoses Abnormal uterine bleeding (AUB) N93.9
[2023-11-08 15:48] VITALS: BMI 29.5
== END 2023-11-10 15:59 | disposition home or self-care (01) ==
LOC: HO.HWS 15:43
PROVIDERS: PCP Nurse Practitioner Primary Care; Visit Provider Obstetrics & Gynecology
DX: N93.9 Abnormal uterine and vaginal bleeding, unspecified (principal)
CPT/HCPCS: 99213

== ENCOUNTER → 2023-11-08 15:43 | Outpatient (BNVA) | payer OTHER, SELFPAY | PROVIDERS: PCP Nurse Practitioner Primary Care; Visit Provider Obstetrics & Gynecology ==

== ENCOUNTER → 2024-02-27 10:02 | Outpatient (BNVA) | payer OTHER, SELFPAY | PROVIDERS: PCP Nurse Practitioner Primary Care; Visit Provider Internal Medicine ==

== ENCOUNTER 2024-03-27 11:00 | Outpatient (REF) | payer OTHER, SELFPAY ==
[2024-03-30 07:28] LABS: TS Negative Control Passed; TS Panel A 0; TS Panel B 0; TS Positive Control Passed; TSpotTB Negative (Negative)
== END 2024-03-27 11:01 | disposition home or self-care (01) ==
LOC: HO.HMGCLDS 11:00
PROVIDERS: PCP Internal Medicine; Visit Provider Internal Medicine
DX: Z01.419 Encounter for gynecological examination (general) (routine) without abnormal findings (principal)
CPT/HCPCS: 36415; 86481

== ENCOUNTER 2024-04-08 11:36 | Outpatient (AMB) | payer OTHER, SELFPAY ==
[2024-04-08 11:38] VITALS: BP 130/84; PULSE 52; O2SAT 100; BMI 28.3
--- NOTE | 2024-04-08 11:38 | A.OFFPC_ITS ---
Vital Signs 04/08/24 11:38 Height 4 ft 11 in Weight 140 lb BMI 28.3 BP 130/84 Blood Pressure Location Lt brachial Position Sitting Pulse 52 Pulse Source Pulse Oximeter Pulse Oximetry (%) 100 Oxygen Delivery Method Room Air Intake Visit Reasons: Follow up recent ER visit Intake Note: Pt is here today to f/u ER Allergies shellfish Allergy (Intermediate, Uncoded 04/08/24 11:41) Angioedema Tobacco use date assessed: 04/08/24 Dental Screening Dental Screen Date: 04/08/24 Did you have a dental visit in the last 12 months?: Yes Did you have a dental problem in the last 6 months where you did not have access to dental care?: No Was dental information given to patient?: Patient has dentist HPI Follow up recent ER visit HPI Details Pt presents for the follow-up of ER visit for upper chest pressure constant for the last month. Pt had negative cardiac workup at [facility] ER. 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 Patient denies insomnia change in appetite depression anxiety. [facility] Medical History Hives Post-COVID syndrome Surgical History H/O abdominoplasty H/O tubal ligation Family History Paternal Aunt Breast cancer Father Bladder cancer Paternal Uncle Gastric cancer Paternal Uncle Colon cancer Social History Housing: House Patient Tobacco Use Status: Never used Tobacco e-Cigarette/Vaping Use: Never Used Second Hand Smoke Exposure: No service: No Current occupational status: employed Current occupation: [employer] Current occupational exposures/hazards: No Cognitive needs: No Hearing needs: No Vision needs: No Questionnaire Thrive Questionnaire Date Thrive assessed: 02/27/24 I am a: Patient What is your living situation today?: I have a steady place to live Within the past 12 months, did the food you bought not last and you didn't have the money to get more?: Never true Within the past 12 months, did you worry whether your food would run out before you got money to buy more?: Never true Do you have trouble paying for medicines?: No Do you have trouble getting transportation to medical appointments?: No Do you have trouble paying your heating and electricity bill?: No Do you have trouble taking care of your child, family member or friend?: No Do you have trouble with day-to-day activities such as bathing, preparing meals, shopping, managing finances, etc.?: No Are you currently unemployed and looking for a job?: No Are you interested in more education?: No Please select the resources that you would like help with: None Currently or been in a relationship where the following occur: I choose not to answer THRIVE Score: 0 UZMA-7 AMB Questionnaire UZMA-7 Date UZMA - 7 assessed: 05/17/23 Source: Developed by Drs. Epi Rojo, Savita Gonzalez, Martin Pratt and colleagues, with an educational josue from [employer]. Review of Systems Const All systems reviewed & are unremarkable except as noted in HPI and below Eyes Reports no additional complaints ENT Reports no additional complaints Card Reports no additional complaints Resp Reports no additional complaints GI Reports no additional complaints Reports no additional complaints Physical exam (Primary Care) Vital Signs: Last Vital Signs Pulse 52 04/08/24 11:38 BP 130/84 04/08/24 11:38 Pulse Ox 100 04/08/24 11:38 Oxygen Delivery Method Room Air 04/08/24 11:38 BMI result Body Mass Index 28.3 Tobacco/Smoking Status: Tobacco use Status Tobacco use date assessed 04/08/24 04/08/24 11:43 Patient Tobacco Use Status Never used Tobacco 04/08/24 11:43 e-Cigarette/Vaping Use Never Used 04/08/24 11:43 Thrive Assessment: Date of Thrive Assessment Date Thrive assessed 02/27/24 04/08/24 11:43 Currently or been in a relationship where the following occur: I choose not to answer Const General: no acute distress HENMT Head: Yes normal to inspection Ears: hearing grossly normal bilaterally Face and sinus: Yes normal facial exam Eyes General: appearance normal, both eyes and all related structures Resp Effort & Inspection: normal respiratory effort Auscultation: clear to auscultation bilaterally Cardio Rhythm: regular rhythm Heart sounds: S1 normal heart sound present and S2 normal heart sound present GI Inspection: Yes normal to inspection Palpation (GI): Soft to palpation Percussion: Yes normal to percussion Auscultation: normal bowel sounds Coding Level of Care Code Est Pt Level 3 (35479) Diagnoses Chest pressure R07.89 Assessment & Plan Assessment & Plan (1) Chest pressure: Comment: Negative cardiac workup at [facility] ER 03/2024 Code(s): R07.89 - Other chest pain Category: Medical Plan: Stress management discussed with the patient she was advised to increase physical activity and if her symptoms persist low-dose SSRI will be tried
== END 2024-04-08 13:03 | disposition home or self-care (01) ==
PROVIDERS: Visit Provider Internal Medicine
DX: R07.89 Other chest pain (principal)

== ENCOUNTER → 2025-03-21 13:07 | Outpatient (BNVA) | payer SELFPAY | PROVIDERS: Visit Provider Physician Assistant | DX: Z02.1 Encounter for pre-employment examination (principal) ==